=== PATIENT | male | born 1960 | race Caucasian/White ===

== ENCOUNTER 2017-09-05 03:24 | Emergency (ER) | payer MEDICARE ==
[~2017-09-05] VITALS: Ht 177.8 cm; Wt 88.0 kg
[~2017-09-05 03:24] MED LIST: ADVIL100 MG PO; ANDROGEL1.25 GM TD; ARMOUR THYROID60 MG PO; BLOOD THINNER; BP MED; CHOLESTEROL MED; COLCHICINE0.6 M1 PO; CYCLOBENZAPRINE10 MG PO; CYMBALTA60 MG PO; DILAUDID4 MG PO; FLOMAX0.4 MG PO; GLYCOTROL CAPS1 EACH PO; IBUPROFEN400 MG PO; INDERAL LA80 MG PO; LIDODERM700 MG TOP; LYRICA150 MG PO; MORPHINE SULFAT60 M4 PO; MULTIVITAMINS1 EAC7 PO; PERCOCET 7.5-31 EACH PO; PROMETHAZINE HC25 M1 PO; TRAMADOL HCL50 MG PO; TRAZODONE HCL50 MG PO; TYLENOL325 MG PO; ULTRAM50 MG PO; VITAMIN C100 MG PO; ZINC30 M1 PO
== END 2017-09-05 03:44 | disposition home or self-care (01) ==
LOC: ED 03:24
DX: M54.6 Pain in thoracic spine (principal); G89.29 Other chronic pain; I10 Essential (primary) hypertension; F17.200 Nicotine dependence, unspecified, uncomplicated; Z91.038 Other insect allergy status; Z88.6 Allergy status to analgesic agent; Z88.0 Allergy status to penicillin; Z88.8 Allergy status to other drugs, medicaments and biological substances; Z91.018 Allergy to other foods; Z79.899 Other long term (current) drug therapy
CPT/HCPCS: 99282

== ENCOUNTER 2017-10-20 22:24 | Emergency (ER) | payer MEDICARE ==
[~2017-10-20] VITALS: Ht 177.8 cm; Wt 87.5 kg
[2017-10-21] MEDS ORDERED: TESSALON PERLE100 MG PO (01:12)
== END 2017-10-21 01:42 | disposition home or self-care (01) ==
LOC: ED 22:24
DX: B34.9 Viral infection, unspecified (principal); I10 Essential (primary) hypertension; F17.200 Nicotine dependence, unspecified, uncomplicated; Z91.030 Bee allergy status; Z88.6 Allergy status to analgesic agent; Z88.0 Allergy status to penicillin; Z88.5 Allergy status to narcotic agent; Z91.018 Allergy to other foods; Z79.899 Other long term (current) drug therapy
CPT/HCPCS: 71010; 80053; 85025; 87502; 96361; 96374; 96375; 99283; J2405; J2550; J7030

== ENCOUNTER 2018-07-04 21:27 | Emergency (ER) | payer MEDICARE ==
[~2018-07-04] VITALS: Ht 177.8 cm; Wt 87.5 kg
--- OUTSIDE RECORDS SUMMARY | ~2018-07-04 | XMS | Clinical Summary ---
Demographics + + + | Address | [address] [place] [address] | | | [place] [address] | + + + | Home Phone | | + + + | Preferred Language | Unknown | + + + | Marital Status | | + + + | Religion Affiliation | Unknown | + + + | Race | Unknown | + + + | Ethnic Group | Unknown | + + + Author + + + | Author | [facility] | | | and [place] | + + + | Organization | [facility] | | | and [place] | + + + | Address | Unknown | + + + | Phone | Unavailable | + + + Support + + +---------+ + | Name | Relationship | Address | Phone | + + +---------+ + | Mickie Dan ECON | Unknown | | + + +---------+ + | Darline Benavidez | ECON | Unknown | | + + +---------+ + | Mickie Dan | ECON | Unknown | | + + +---------+ + | Darline Benavidez | ECON | Unknown | | + + +---------+ + Care Team Providers + +------+ + | Care Fountain Manager Name | Role | Phone | + +------+ + | Joshua Mcelroy MD | PP | | + +------+ + Allergies + + + + + + | Active Allergy | Reactions | Severity | Noted | Comments | | | | | Date | | + + + + + + | Aspirin | | | | | + + + + + + | Aspirin | | | 04/29/20 | | | | | | 13 | | + + + + + + | Bee Venom | | | | | + + + + + + | Naproxen | | | | | + + + + + + | Naproxen | | | 04/29/20 | | | | | | 13 | | + + + + + + | Penicillins | | | | | + + + + + + | Penicillins | | | 04/29/20 | | | | | | 13 | | + + + + + + Current Medications + + +-------+---------+------+------+-------+ | Prescription | Sig. | Disp. | Refills | Star | End | Statu | | | | | | t | Date | s | | | | | | Date | | | + + +-------+---------+------+------+-------+ | PROMETHAZINE HCL | | | | 09/ | | Activ | | | | | | 02/07 | | e | | | | | | 12 | | | + + +-------+---------+------+------+-------+ | tamsulosin | Take 0.4 mg by mouth | | | | | Activ | | (FLOMAX) 0.4 mg CAPS | daily (after | | | | | e | | | breakfast). | | | | | | + + +-------+---------+------+------+-------+ | DULoxetine HCl | Take by mouth. | | | | | Activ | | (CYMBALTA PO) | | | | | | e | + + +-------+---------+------+------+-------+ Active Problems + + + | Problem | Noted Date | + + + | OTHER ACUTE PAIN | | + + + | SACROILIITIS NOT ELSEWHERE CLASSIFIED | | + + + | LUMBOSACRAL SPONDYLOSIS WITHOUT MYELOPATHY | | + + + | DEGEN LUMBAR/LUMBOSACRAL INTERVERTEBRAL DISC | | + + + | THORACIC/LUMBOSACRAL NEURITIS/RADICULITIS UNSPEC | | + + + | OTHER UNKNOWNandUNSPEC CAUSE MORBIDITY/MORTALITY | | + + + | BACK PAIN, LUMBAR | | + + + Family History + + +------+ + | Medical History | Relation | Name | Comments | + + +------+ + | Migraines | Mother | | | + + +------+ + | Rheum arthritis | Mother | | | + + +------+ + + +------+--------+ + | Relation | Name | Status | Comments | + +------+--------+ + | Mother | | | | + +------+--------+ + Social History + + + +--------+------+ | Tobacco Use | Types | Packs/Day | Years | Date | | | | | Used | | + + + +--------+------+ | Current Every Day | Cigarettes | 0.5 | | | | Smoker | | | | | + + + +--------+------+ + + +---------+ + | Alcohol Use | Drinks/We | oz/Week | Comments | | | ek | | | + + +---------+ + | No | | | rarely | + + +---------+ + + + + | Sex Assigned at | Date Recorded | | | | + + + | Not on file | | + + + Last Filed Vital Signs + + + + | Vital Sign | Reading | Time Taken | + + + + | Blood Pressure | 118/73 | 10/18/20171409 PST | + + + + | Pulse | 84 | 10/18/20171409 PST | + + + + | Temperature | 37.2 C (98.9 F) | 10/18/20171200 PST | + + + + | Respiratory Rate | 18 | 10/18/20171409 PST | + + + + | Oxygen Saturation | 100% | 10/18/20171409 PST | + + + + | Inhaled Oxygen | - | - | | Concentration | | | + + + + | Weight | 87.5 kg (193 lb) | 10/18/20171200 PST | + + + + | Height | 177.8 cm (5' 10") | 10/18/20171200 PST | + + + + | Body Mass Index | 27.69 | 10/18/20171200 PST | + + + + Plan of Treatment + + + + + | Health Maintenance | Due Date | Last Done | Comments | + + + + + | Hepatitis C | | | | | Screening | 3 | | | + + + + + | Vaccine: | | | | | Dtap/Tdap/Td (1 - | 2 | | | | Tdap) | | | | + + + + + | Vaccine: | | | | | Pneumococcal 19-64 | 2 | | | | (PPSV23 only) Medium | | | | | Risk (1 of 1 - | | | | | PPSV23) | | | | + + + + + | Colorectal Cancer | | | | | Screening | 3 | | | | (Colonoscopy) | | | | + + + + + | Vaccine: Influenza | | | | | (#1) | 8 | | | + + + + + Results Not on filefrom Last 3 Months Insurance + +--------+ +--------+ +---------+ | Payer | Benefi | Subscriber | Type | Phone | Address | | | t Plan | ID | | | | | | / | | | | | | | Group | | | | | + +--------+ +--------+ +---------+ | VALERIANO CMS WC | [place] | [id number] | Indemn | [phone] | | | | CK CMS | | ity | [id number] | | | | WC | | | | | + +--------+ +--------+ +---------+ + +--------+ +--------+ + + | Guarantor Name | Accoun | Relation to | Date | Phone | Billing Address | | | t Type | Patient | of | | | | | | | | | | + +--------+ +--------+ + + | [id number] | Worker | Self [birth year] | Home: | [address] | | | s Comp | | 1960 | [phone] | [place] [address] | | | | | | [phone] | | + +--------+ +--------+ + + | LIZETH BENAVIDEZ | Person | Self [birth year] | Home: | [address] | | | al/Johnnie | | 1961 | [phone] | [place] [address] | | | astrid | | | [phone] | | + +--------+ +--------+ + +
--- OUTSIDE RECORDS SUMMARY | ~2018-07-04 | XMS | Clinical Summary ---
Demographics + + + | Address | [address] [place] [address] | | | [place] [address] | + + + | Home Phone | | + + + | Preferred Language | Unknown | + + + | Marital Status | | + + + | Jainism Affiliation | Unknown | + + + | Race | Unknown | + + + | Ethnic Group | Unknown | + + + Author + + + | Author | [facility] | | | and [place] | + + + | Organization | [facility] | | | and [place] [...] Team Providers + +------+ + | Care Automatic Cigar Wrapper Tender Name | Role | Phone | + [...] | VALERIANO CMS WC | [place] | [id number] | Indemn | [phone] | | | [...] | + +--------+ +--------+ + + | [id number] | Worker | Self | [birth year] | Home: | [address] | | | s Comp | | 1960 | [phone] | [place] [address] | | | | | | [phone] | | + +--------+ +--------+ + + | LIZETH BENAVIDEZ | Person | Self | [birth year] | Home: | [address] | | | al/[place]nie | | 1961 | [phone] | [place] [address] | | | [place]id | | | [phone] | | + +--------+ +--------+ + +
[~2018-07-04 21:27] MED LIST changes: +AUGMENTIN 875-1 EACH PO; +BACTRIM DS TAB1 EACH PO; +NORCO 5-325 TA1 EACH PO; +TESSALON PERLE100 MG PO
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
[2018-07-04] MEDS ORDERED: DOXYCYCLINE HY100 MG PO (22:02)
== END 2018-07-04 22:13 | disposition home or self-care (01) ==
LOC: ED 21:27
DX: S60.221A Contusion of right hand, initial encounter (principal); I10 Essential (primary) hypertension; Z87.891 Personal history of nicotine dependence; Z91.038 Other insect allergy status; Z88.6 Allergy status to analgesic agent; Z91.030 Bee allergy status; Z88.0 Allergy status to penicillin; Z91.018 Allergy to other foods; Z79.899 Other long term (current) drug therapy; W22.01XA Walked into wall, initial encounter
CPT/HCPCS: 73130; 99283

== ENCOUNTER 2019-02-05 23:35 | Emergency (ER) | payer MEDICARE ==
[~2019-02-05] VITALS: Ht 177.8 cm; Wt 87.1 kg
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
--- OUTSIDE RECORDS SUMMARY | ~2019-02-05 | XMS | Clinical Summary ---
Demographics + + + | Address | [address] [place] [address] | | | [place] [address] | + + + | Home Phone | | + + + | Preferred Language | Unknown | + + + | Marital Status | | + + + | Advent Affiliation | Unknown | + + + | Race | Unknown | + + + | Ethnic Group | Unknown | + + + Author + + + | Author | [facility] | | | and [place] | + + + | Organization | [facility] | | | and [place] [...] Team Providers + +------+ + | Care Management Information Systems Director Name | Role | Phone | + +------+ + | Joshua Mcelroy MD | PP | | + +------+ + Allergies + + + + + + | Active Allergy | Reactions | Severity | Noted | Comments | | | | | Date | | + + + + + + | Ibuprofen | Other (See Comments) | Low | 02/03/20 | Epistaxis | | | | | 19 | | + + + + + + | Aspirin | Other (See Comments) | Low | | Epistaxis | + + + + + + | Bee Venom | Anaphylaxis | High | | | + + + + + + | Robel | Anaphylaxis | High | 02/03/20 | | | | | | 19 | | + + + + + + | Naproxen | Other (See Comments) | High | | Cardiac Arrest | + + + + + + | Penicillins | Anaphylaxis | High | | | + + + + + + Medications + + + +---------+------+------+-------+ | Medication | Sig | Dispensed | Refills | Star | End | Statu | | | | | | t | Date | s | | | | | | Date | | | + + + +---------+------+------+-------+ | tamsulosin | Take 0.4 mg by mouth | | 0 | | | Activ | | (FLOMAX) 0.4 mg CAPS | daily (after | | | | | e | | | breakfast). | | | | | | + + + +---------+------+------+-------+ | DULoxetine HCl | Take by mouth. | | 0 | | | Activ | | (CYMBALTA PO) | | | | | | e | + + + +---------+------+------+-------+ | pregabalin | Take 300 mg by mouth | | 0 | | | Activ | | (LYRICA) 300 MG | 2 times daily. | | | | | e | | capsule | | | | | | | + + + +---------+------+------+-------+ | propranolol | Take 10 mg by mouth | | 0 | | | Activ | | (INDERAL) 10 mg | 3 times daily. | | | | | e | | tablet | Patient unsure of | | | | | | | | dose. | | | | | | + + + +---------+------+------+-------+ | PROMETHAZINE HCL | | | 0 | 06/21 | 01/19 | Disco | | | | | | 02/07 | 03/09 | ntinu | | | | | | 12 | 19 | ed | + + + +---------+------+------+-------+ Active Problems + + + | Problem [...] PAIN, LUMBAR | | + + + Encounters +--------+ + + + + | Date | Type | Specialty | Care Team | Description | +--------+ + + + + | 02/02/ | Emergency | | [facility] | Acute right-sided | | 2019 | | | MD Mario | low back pain | | | | | | without sciatica | | | | | | (Primary Dx) | +--------+ + + + + from Last 3 Months Family History + + +------+ + | [...] recent travel history available. | + + Last Filed Vital Signs + [...] 02/02/20191535 PDT | + + + + Plan of [...] + + + + + | Vaccine: Zoster (1 | | | | | of 2) | 3 | | | + + + + + | Vaccine: Influenza | | | | | (Season Ended) | 9 | | | + + + + + Procedures + +--------+ + + + | [...] section. | + +--------+ + + + from Last [address] Abdomen Pelvis wo Contrast (02/02/2019 [...] | | | + +---------+ + + from Last 3 Months Insurance + +--------+ +--------+ +---------+--------+ | Payer | Benefi | Subscriber | Effect | Phone | Address | Type | | | t Plan | ID | felice | | | | | | / | | Dates | | | | | | Group | | | | | | + +--------+ +--------+ +---------+--------+ | VALERIANO [facility] WC | SEDGWI | [id number] | 08/15/ | [phone] | | Indemn | | | CK CMS | | 2006-P | 0 | | ity | | | WC | | resent | | | | + +--------+ +--------+ +---------+--------+ + +--------+ +--------+ + + | Guarantor Name | Accoun | Relation to | Date | Phone | Billing Address | | | t Type | Patient | of | | | | | | | | | | + +--------+ +--------+ + + | Mark Benavidez | Worker | Self | [birth year] | [address] [facility] | | | s Comp | | 1961 | [phone] | [place] [address] | | | | | | 6 (Home) | | + +--------+ +--------+ + + | Mark Benavidez | Person | Self | [birth year] | [address] | | | al/Fam | | 1961 | [phone] | [place] [address] | | | astrid | | | 5 (Home) | | + +--------+ +--------+ + + Advance Directives Patient has advance care planning documents on file. For more information, please contact:[facility] [place] [address]
--- OUTSIDE RECORDS SUMMARY | ~2019-02-05 | XMS | Encounter Summary ---
Demographics + + + | Address | [address] [place] [address] | | | [place] [address] | + + + | Home Phone | | + + + | Preferred Language | Unknown | + + + | Marital Status | | + + + | Faith Affiliation | Unknown | + + + | Race | Unknown | + + + | Ethnic Group | Unknown | + + + Author + + + | Author | [facility] | | | and [place] | + + + | Organization | [facility] | | | and [place] [...] Team Providers + +------+ + | Care Geographical Historian Name | Role | Phone | + [...] + + | 02/02/ | Emergency | [facility] | Waldo Perry | Acute right-sided | | 2019 | | [facility] | MD Mario [address] | low back pain | | | | CENTER [address] | [address] [place] | without sciatica | | | | [place], [place] | [place] [address] | (Primary Dx) | | | | [address] | [phone] | | | | | [phone] | | | +--------+ + + + [...] sent through Care Everywhere.Back Pain, Reli eving (Gibraltarian)Back, How It Works (Gibraltarian)documented in this encounter Medications at Time of [...]
--- OUTSIDE RECORDS SUMMARY | ~2019-02-05 | XMS | Clinical Summary ---
Demographics + + + | Address | [address] [place] [address] | | | [place] [address] | + + + | Home Phone | | + + + | Preferred Language | Unknown | + + + | Marital Status | | + + + | Shinto Affiliation | Unknown | + + + | Race | Unknown | + + + | Ethnic Group | Unknown | + + + Author + + + | Author | [facility] | | | and [place] | + + + | Organization | [facility] | | | and [place] | [...] Team Providers + +------+ + | Care Crematory Attendant Name | Role | Phone | + [...] | + +--------+ +--------+ +---------+--------+ | VALERIANO [facility] WC | SEDGWI | [id number] | 08/15/ | [phone] | | Indemn | | | CK [...] Worker | Self | [birth year] | [address] [facility] | | | s Comp | | 1961 | [phone] | [place] [address] | | | | | | 6 (Home) | | + +--------+ +--------+ + + | Mark Benavidez | Person | Self | [birth year] | [address] | | | al/Fam | | 1961 | [phone] | [place] [address] | | | astrid | | | 5 (Home) | | + +--------+ +--------+ + + Advance Directives Patient has advance care planning documents on file. For more information, please contact:[facility] [place] [address]
[~2019-02-05 23:35] MED LIST changes: +DOXYCYCLINE HY100 MG PO
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
[2019-02-05] MEDS ORDERED: ACETAMINOPHEN325 M2 PO (23:51)
== END 2019-02-06 01:01 | disposition home or self-care (01) ==
LOC: ED 23:35
DX: M79.651 Pain in right thigh (principal); I10 Essential (primary) hypertension; M54.9 Dorsalgia, unspecified; G89.29 Other chronic pain; Z87.891 Personal history of nicotine dependence; Z91.038 Other insect allergy status; Z88.6 Allergy status to analgesic agent; Z88.0 Allergy status to penicillin; Z91.018 Allergy to other foods; Z88.8 Allergy status to other drugs, medicaments and biological substances; Z79.899 Other long term (current) drug therapy
CPT/HCPCS: 93971; 99283-25

== ENCOUNTER 2019-02-11 05:22 | Emergency (ER) | payer MEDICARE ==
[~2019-02-11] VITALS: Ht 177.8 cm; Wt 83.9 kg
--- OUTSIDE RECORDS SUMMARY | ~2019-02-11 | XMS | Encounter Summary ---
Demographics + + + | Address | [address] [place] [address] | | | [place] [address] | + + + | Home Phone | | + + + | Preferred Language | Unknown | + + + | Marital Status | | + + + | Quaker Affiliation | Unknown | + + + | Race | Unknown | + + + | Ethnic Group | Unknown | + + + Author + + + | Author | [facility] | | | and [place] | + + + | Organization | [facility] [place] [facility] | | | and [place] [...] Team Providers + +------+ + | Care Manager Behavioral Name | Role | Phone | + [...] + + | 02/02/ | Emergency | [facility] | Waldo Perry | Acute right-sided | | 2019 | | MED CTR EMERGENCY | MD Mario [address] | low back pain | | | | CENTER [address] | [address] [place] | without sciatica | | | | [place], [place] | [place] [address] | (Primary Dx) | | | | [address] | [phone] | | | | | [phone] | | | +--------+ + + + [...] sent through Care Everywhere.Back Pain, Reli eving (Libyan)Back, How It Works (Libyan)documented in this encounter Medications at Time of [...]
--- OUTSIDE RECORDS SUMMARY | ~2019-02-11 | XMS | Clinical Summary ---
Demographics + + + | Address | [address] [place] [address] | | | [place] [address] | + + + | Home Phone | | + + + | Preferred Language | Unknown | + + + | Marital Status | | + + + | Sabianist Affiliation | Unknown | + + + | Race | Unknown | + + + | Ethnic Group | Unknown | + + + Author + + + | Author | [facility] | | | and [place] | + + + | Organization | [facility] | | | and [place] [...] Team Providers + +------+ + | Care Apprentice Cosmetologist Name | Role | Phone | + [...] | + +--------+ +--------+ +---------+--------+ | VALERIANO [facility] WC | SEDGWI | [id number] | 08/15/ | [phone] | | Indemn | | | CK [...] Worker | Self | [birth year] | [address] [facility] | | | s Comp | | 1961 | [phone] | [place] [address] | | | | | | 6 (Home) | | + +--------+ +--------+ + + | Mark Benavidez | Person | Self | [birth year] | [address] | | | al/Fam | | 1961 | [phone] | [place] [address] | | | [place] | | | 5 (Home) | | + +--------+ +--------+ + + Advance Directives Patient has advance care planning documents on file. For more information, please contact:[facility] [place] [address]
--- OUTSIDE RECORDS SUMMARY | ~2019-02-11 | XMS | Clinical Summary ---
Demographics + + + | Address | [address] [place] [address] | | | [place] [address] | + + + | Home Phone | | + + + | Preferred Language | Unknown | + + + | Marital Status | | + + + | Gnosticism Affiliation | Unknown | + + + | Race | Unknown | + + + | Ethnic Group | Unknown | + + + Author + + + | Author | [facility] | | | and [place] | + + + | Organization | [facility] | | | and [place] [...] Team Providers + +------+ + | Care Compliance Analyst Name | Role | Phone | + [...] | + +--------+ +--------+ +---------+--------+ | VALERIANO [facility] WC | SEDGWI | [id number] | 08/15/ | [phone] | | Indemn | | | CK [...] Worker | Self | [birth year] | | [address] [facility] | | | s Comp | | 1961 | [phone] | [place] [address] | | | | | | 6 (Home) | | + +--------+ +--------+ + + | Mark Benavidez | Person | Self | [birth year] | [address] | | | al/Fam | | 1961 | [phone] | [place] [address] | | | [place] | | | 5 (Home) | | + +--------+ +--------+ + + Advance Directives Patient has advance care planning documents on file. For more information, please contact:[facility] [place] [address]
--- OUTSIDE RECORDS SUMMARY | ~2019-02-11 | XMS | Encounter Summary ---
Demographics + + + | Address | [address] [place] [address] | | | [place] [address] | + + + | Home Phone | | + + + | Preferred Language | Unknown | + + + | Marital Status | | + + + | Zoroastrian Affiliation | Unknown | + + + | Race | Unknown | + + + | Ethnic Group | Unknown | + + + Author + + + | Author | [facility] | | | and [place] | + + + | Organization | [facility] | | | and [place] [...] Team Providers + +------+ + | Care Power Cleaner Operator Name | Role | Phone | + [...] + + | 02/02/ | Emergency | [facility] | Waldo Perry | Acute right-sided | | 2019 | | MED CTR EMERGENCY | MD Mario [address] | low back pain | | | | CENTER [address] | [address] [place] | without sciatica | | | | [place], [place] | [place] [address] | (Primary Dx) | | | | [address] | [phone] | | | | | [phone] | | | +--------+ + + + [...] sent through Care Everywhere.Back Pain, Reli eving (Panamanian)Back, How It Works (Panamanian)documented in this encounter Medications at Time of [...]
[~2019-02-11 05:22] MED LIST changes: +ACETAMINOPHEN325 M2 PO
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
== END 2019-02-11 07:32 | disposition home or self-care (01) ==
LOC: ED 05:22
DX: M54.41 Lumbago with sciatica, right side (principal); I10 Essential (primary) hypertension; F17.200 Nicotine dependence, unspecified, uncomplicated; Z91.030 Bee allergy status; Z88.8 Allergy status to other drugs, medicaments and biological substances; Z88.6 Allergy status to analgesic agent; Z88.0 Allergy status to penicillin; Z91.018 Allergy to other foods; Z79.899 Other long term (current) drug therapy
CPT/HCPCS: 74176; 99283-25

== ENCOUNTER 2022-05-06 14:14 | Emergency (ER) | payer MEDICARE, OTHER ==
[~2022-05-06] VITALS: Ht 177.8 cm; Wt 93.9 kg
--- NOTE | ~2022-05-06 | EKG ---
[facility] [address] [facility] [place], [place] [address] Draft EKG completed, results pending confirmation PATIENT NAME: LIZETH ARMAS Electrocardiogram DATE OF : 64 PHYSICIAN: PRELIMINARY REPORT #: [id number] REPORT IS CONFIDENTIAL AND NOT TO BE RELEASED WITHOUT AUTHORIZATION
[~2022-05-06 14:14] MED LIST changes: +BENADRYL ALLERG25 MG PO; +EPIPEN 2-P0.3 MG/0.3 IM
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
[2022-05-06] MEDS ORDERED: EPIPEN 2-P0.3 MG/0.3 IM (16:34)
[2022-05-06] MEDS ORDERED: PREDNISONE20 MG PO (16:35)
== END 2022-05-06 17:06 | disposition left against medical advice (07) ==
LOC: ED 14:14
DX: T63.441A Toxic effect of venom of bees, accidental (unintentional), initial encounter (principal); R06.02 Shortness of breath; R13.10 Dysphagia, unspecified; I10 Essential (primary) hypertension; F17.200 Nicotine dependence, unspecified, uncomplicated; Z79.899 Other long term (current) drug therapy; Z88.6 Allergy status to analgesic agent; Z91.038 Other insect allergy status; Z88.0 Allergy status to penicillin; Z91.018 Allergy to other foods; Y92.9 Unspecified place or not applicable; Z53.29 Procedure and treatment not carried out because of patient's decision for other reasons
CPT/HCPCS: J0171; J1200; J2930